=== PATIENT | male | born 1955 | race Caucasian/White ===

== ENCOUNTER 2017-01-16 11:56 | Observation (INO) ==
--- NOTE | 2017-01-16 12:13 | Emergency Department Note ---
Disposition Clinical Impression: Transient cerebral ischemia Qualifiers: Transient cerebral ischemia type: unspecified Qualified Code(s): G45.9 - Transient cerebral ischemic attack, unspecified Disposition: Admitted As Inpatient Condition: Good Referrals: Lupe Kim MD [Primary Care Provider] - Forms: ED Satisfaction Letter Time of Disposition: 13:40 Neuro HPI - General Chief Complaint: ED Neuro Symptoms/Deficit Stated Complaint: neuro symptoms Time Seen by Provider: 01/16/17 12:03 Source: patient, family Limitations: no limitations Nursing Notes Reviewed: Yes Vital Signs Reviewed: Yes - History of Present Illness HPI Narrative: 61-year-old male who was in his van working and developed acute onset of some visual changes he says it's difficult for them describe it's kind of like he was looking through thick glasses he did have some visual field that was decreased which lasted about 30 minutes and then resolved. He also had some numbness of his face which has improved. The patient has had a TIA about 5 years ago. Onset of Symptoms Date: 01/16/17 Onset of Symptoms Time: 11:00 Timing confirmed by: family member Location: left face, other (Vision) History of same: No Severity: now resolved Symptoms Improving: Yes Improves with: time Worsens with: none Context: sudden onset On Anticoagulants: No Associated symptoms: Reports: denies other symptoms Treatments Prior to Arrival: none - Related Data Home Medications: Home Medications Medication Instructions Recorded Confirmed Amoxicillin/Clavulanate [Augmentin] 875 mg PO BID MDD [id number], 05-18-1605/21/16 Desoximetasone [Topicort] 1 appl TP BID 05/21/16 05/21/16 Diltiazem HCl [Diltiazem 24Hr Cd] 120 mg PO DAILY 05/21/16 05/21/16 Omeprazole [PriLOSEC] 40 mg PO DAILY 05/21/16 05/21/16 Ondansetron HCl [Zofran] 4 mg PO Q8H PRN 05/21/16 05/21/16 Potassium Chloride 20 meq PO DAILY 05/21/16 05/21/16 Pravastatin Sodium [Pravachol] 40 mg PO DAILY 05/21/16 05/21/16 Sotalol HCl [Sotalol] 180 mg PO BID 11/16/16 11/16/16 Sulfamethoxazole/Trimeth DS 1 each PO BID MDD [id number], 05/21/16 05/21/16 [Bactrim DS] 05-16-16. Warfarin [Coumadin] 4 mg PO DAILY 05/21/16 05/21/16 Previous Rx's Medication Instructions Recorded Allopurinol [Zyloprim] 100 mg PO DAILY #30 tablet 05/24/16 Cefdinir [Omnicef] 300 mg PO BID #14 capsule 05/24/16 Furosemide [Lasix] 40 mg PO BID #60 05/24/16 Sulfamethoxazole/Trimeth DS 1 each PO BID #14 tablet 05/24/16 [Bactrim DS] Allergies/Adverse Reactions: Allergies Allergy/AdvReac Type Severity Reaction Status Date / Time No Known Allergies Allergy Verified 01/16/17 12:01 Constitutional: Denies: fever, chills, weakness, weight change Eyes: Reports: vision change. Denies: eye pain, eye discharge ENT ED: Denies: ear pain, throat pain, dental pain, hearing loss, epistaxis, congestion, dysphagia Cardiovascular: Denies: chest pain, palpitations, dyspnea on exertion, edema, syncope Respiratory: Denies: cough, dyspnea, wheezes, hemoptysis, stridor Gastrointestinal: Denies: abdominal pain, nausea, vomiting, diarrhea, constipation, hematemesis, melena, hematochezia Genitourinary: Denies: urgency, dysuria, frequency, hematuria Musculoskeletal: Denies: back pain, neck pain, arthralgia, myalgia Integumentary: Denies: rash, abrasion, lesions Neurological: Reports: paresthesias. Denies: headache, weakness, numbness, confusion, abnormal gait, vertigo Psychiatric: Denies: anxiety, depression, suicidal thoughts, homicidal thoughts , auditory hallucinations, visual hallucinations Endocrine: Denies: fatigue Hematological/Lymphatic: Denies: easy bleeding, easy bruising Allergic/Immunologic: Denies: facial swelling, urticaria Past Medical History - Past Medical History Medical history: Reports: atrial fibrillation, CHF, TIA Surgical history: Reports: appendectomy Psychiatric history: Reports: no psych history - Social History Smoking Status: Never smoker Smokeless Tobacco Status: No Alcohol use: Reports: none Drug use: Reports: none Physical Exam - General Limitations: no limitations General appearance: alert - Head Head exam: atraumatic, normocephalic, normal inspection - Eye Eye exam: Present: normal appearance, PERRL, EOMI - ENT ENT exam: normal exam, normal oropharynx, mucous membranes moist - Neck Neck exam: Present: normal inspection, full ROM, trachea midline - Chest Chest inspection: Present: normal inspection, symmetric chest wall rise - Respiratory Respiratory exam: Present: normal lung sounds bilaterally - Cardiovascular Cardiovascular exam: Present: regular rate, normal rhythm, normal heart sounds - Abdominal Exam Abdominal exam: Present: soft, Non-Tender. Absent: tenderness, distention, guarding, rebound, rigidity - Extremities Exam Extremities exam: Present: normal inspection, full ROM. Absent: tenderness, pedal edema - Expanded Lower Extremity Exam Neurovascular/Tendon exam: Absent: motor deficit, sensory deficit, tendon deficit Gait: observed and normal - Back Exam Back exam: Present: normal inspection, full ROM. Absent: tenderness - Neurological Exam Neurological exam: Present: alert, oriented X3. Absent: motor sensory deficit - Psychiatric Psychiatric exam: Present: normal affect, normal mood - Skin Skin exam: Present: warm, dry, intact, normal color Course - Reevaluation(s) Reevaluation #1: 61-year-old with a history of A. fib and had a TIA 5 years ago is on Coumadin who comes in with acute visual changes resolved her for about 30 minutes with some facial numbness and he said some weakness. The symptoms have resolved concern is that he's had a TIA. Time: 14:19 - Consultations Consultation #1: Discussed with , admit Time: 14:20 Vital Signs Temperature 97.4 F L 01/16/17 11:58 Pulse Rate 79 01/16/17 11:58 Respiratory Rate 19 01/16/17 11:58 Blood Pressure 142/84 01/16/17 11:58 O2 Sat by Pulse Oximetry 95 01/16/17 11:58 Temperature 97.4 F L 01/16/17 11:58 Pulse Rate 69 01/16/17 14:04 Respiratory Rate 16 01/16/17 14:04 Blood Pressure 118/70 01/16/17 14:04 O2 Sat by Pulse Oximetry 93 01/16/17 14:04 Oxygen Delivery Oxygen Delivery Room Air Neuro Symptoms/Deficit - Lab Data Lab results reviewed: Yes I reviewed the patient's lab results. Result diagrams: 01/16/17 12:28 01/16/17 12:28 Lab Results 01/16/17 01/16/17 01/16/17 Range/Units 12:28 12:28 12:28 WBC 8.8 (4.3-11.1) K/mcL RBC 6.26 H (4.19-5.50) M/mcL Hgb 16.6 (12.9-16.9) g/dL Hct 52.7 H (37.5-50.1) % MCV 84.2 (83.0-100.0) fL MCH 26.5 L (28.0-33.3) pg MCHC 31.5 L (31.6-35.5) g/dL RDW 14.4 (11.5-14.5) % Plt Count 215 (140-400) K/mcL MPV 10.0 (9.4-12.4) fL Immature Gran % 0.2 (0-4) % Seg Neutrophils % 66.6 % Lymphocytes % 23.4 % Monocytes % 7.9 % Eosinophils % 1.1 % Basophils % 0.8 % Neutrophils # 5.8 (1.6-8.9) K/mcL Lymphocytes # 2.1 (0.6-4.6) K/mcL Monocytes # 0.7 (0.0-1.3) K/mcL Eosinophils # 0.1 (0.0-0.6) K/mcL Basophils # 0.1 (0.0-0.2) K/mcL PT 22.2 H (9.4-12.1) Seconds INR 2.0 APTT 34.5 (26.0-36.0) Seconds Sodium 138 (136-145) mEq/L Potassium 4.1 (3.5-4.5) mEq/L Chloride 103 (98-109) mEq/L Carbon Dioxide 29 (19-29) mEq/L BUN 15 (8-26) mg/dL Creatinine 0.89 (0.72-1.25) mg/dL Est GFR ( Amer) > 60 (> 60) Est GFR (Non-Af Amer) > 60 (> 60) BUN/Creatinine Ratio 17 (6-26) Glucose 91 (70-99) mg/dL Calculated Osmolality 286 (280-300) Calcium 8.9 (8.6-10.8) mg/dL Troponin I (0-0.03) ng/mL 07/14/17 Range/Units 12:28 WBC (4.3-11.1) K/mcL RBC (4.19-5.50) M/mcL Hgb (12.9-16.9) g/dL Hct (37.5-50.1) % MCV (83.0-100.0) fL MCH (28.0-33.3) pg MCHC (31.6-35.5) g/dL RDW (11.5-14.5) % Plt Count (140-400) K/mcL MPV (9.4-12.4) fL Immature Gran % (0-4) % Seg Neutrophils % % Lymphocytes % % Monocytes % % Eosinophils % % Basophils % % Neutrophils # (1.6-8.9) K/mcL Lymphocytes # (0.6-4.6) K/mcL Monocytes # (0.0-1.3) K/mcL Eosinophils # (0.0-0.6) K/mcL Basophils # (0.0-0.2) K/mcL PT (9.4-12.1) Seconds INR APTT (26.0-36.0) Seconds Sodium (136-145) mEq/L Potassium (3.5-4.5) mEq/L Chloride (98-109) mEq/L Carbon Dioxide (19-29) mEq/L BUN (8-26) mg/dL Creatinine (0.72-1.25) mg/dL Est GFR ( Amer) (> 60) Est GFR (Non-Af Amer) (> 60) BUN/Creatinine Ratio (6-26) Glucose (70-99) mg/dL Calculated Osmolality (280-300) Calcium (8.6-10.8) mg/dL Troponin I 0.02 (0-0.03) ng/mL - Radiology Data Radiology results reviewed: Yes I reviewed the patient's radiology results. Head CT 01/16/17 12:09 IMPRESSION: 1. No acute intracranial abnormality. D/ / Ben Patel MD / Ben Patel MD Interpreting Provider: Ben Patel MD - EKG Data EKG attestation: Yes I reviewed and interpreted this EKG. EKG results narrative: Paced rhythm NIH Stroke Scale - Level of Consciousness LOC: Alert - LOC Questions LOC Questions: Answers both correctly - LOC Commands LOC Commands: Performs both correctly - Best Gaze Best Gaze: Normal - Visual Visual: No visual loss - Facial Palsy Facial Palsy: Normal - Motor Arms Motor Arm-Left: No drift for 10 seconds Motor Arm-Right: No drift for 10 seconds - Motor Legs Motor Leg-Left: No drift for 5 seconds Motor Leg-Right: No drift for 5 seconds - Limb Ataxia Limb Ataxia: Normal, No Ataxia - Sensory Sensory: Normal - Best Language Best Language: No aphasia - Dysarthria Dysarthria: Normal - Extinction and Inattention Extinction and Inattention: Normal - NIHSS Total Score NIHSS Total Score: 0 TPA Checklist - LKW: 3-4.5 hrs Add. Warnings/Precautions Patient/family understanding: The patient/family members have been counseled and understood the risk, benefit , and alternatives of treatment.
[2017-01-16 12:34] LABS: Basophils # 0.1 K/mcL (0.0-0.2); Basophils % 0.8 %; Eosinophils # 0.1 K/mcL (0.0-0.6); Eosinophils % 1.1 %; Hematocrit 52.7 % (37.5-50.1); Hemoglobin 16.6 g/dL (12.9-16.9); Immature Granulocytes % 0.2 % (0-4); Lymphocytes # 2.1 K/mcL (0.6-4.6); Lymphocytes % 23.4 %; Mean Corpuscular HGB Conc 31.5 g/dL (31.6-35.5); Mean Corpuscular Hemoglobin 26.5 pg (28.0-33.3); Mean Corpuscular Volume 84.2 fL (83.0-100.0); Monocytes # 0.7 K/mcL (0.0-1.3); Monocytes % 7.9 %; Neutrophils # 5.8 K/mcL (1.6-8.9); Platelet Count 215 K/mcL (140-400); Red Blood Count 6.26 M/mcL (4.19-5.50); Red Cell Distribution Width 14.4 % (11.5-14.5); Segmented Neutrophils % 66.6 %
[2017-01-16 12:47] LABS: BUN/Creatinine Ratio 17 (6-26); Blood Urea Nitrogen 15 mg/dL (8-26); Calcium 8.9 mg/dL (8.6-10.8); Carbon Dioxide 29 mEq/L (19-29); Chloride 103 mEq/L (98-109); Glucose 91 mg/dL (70-99); Osmolality,Calculated 286 (280-300); Potassium 4.1 mEq/L (3.5-4.5); Sodium 138 mEq/L (136-145); eGFR For African Americans > 60 (> 60); eGFR For Non-African Americans > 60 (> 60)
[2017-01-16 12:54] LABS: Prothrombin Time 22.2 Seconds (9.4-12.1)
[2017-01-16 12:57] LABS: Activated Partial Thrombo Time 34.5 Seconds (26.0-36.0)
[2017-01-16] MEDS ORDERED: Ondansetron ODT 4 MG TAB.RAPDIS SL PRN (18:12)
[2017-01-16] MEDS ORDERED: Acetaminophen 325 MG TABLET PO PRN (18:12)
--- NOTE | 2017-01-16 18:12 | Internal Med History&Physical ---
<Nilay Kim - Last Filed: 01/16/17 18:58> Date of Encounter: 01/16/17 Time of Encounter: 18:12 Assessment and Plan (1) Vision blurred Current visit: Yes Status: Acute - Symptoms have resolved without treatment - POssible causes include TIA vs migraine vs CVA vs seizure vs cardiac causes - Ischemic stroke unlikely given coumadin use with INR 2.0 - Will monitor on telemetry - EKG revealed paced AFib - Head CT in ED was negative for ischemia or hemorrhage. - Will obtain carotid US, repeat Echo, and repeat head CT in AM to evaluate for late presenting changes (2) Atrial fibrillation Current visit: Yes Status: Acute - EKG in ED showed paced AFib with a rate of 70 - on coumadin and complaint with checks, INR 2.0 - Continue home meds of diltiazem 120 mg Qualifiers: Atrial fibrillation type: chronic Qualified Code(s): I48.2 - Chronic atrial fibrillation (3) DVT prophylaxis Current visit: Yes Status: Acute - Continue home coumadin - INR therapeutic Internal Medicine - H&P: HPI Chief complaint: vision changes Admitted From: Emergency Dept Plans for Post Hospital Care: Home History of present illness: Mr. Arvizu is a 61 year old male who presents to [facility] from home with a complaint of vision changes. He has a PMHx of TIA, AFib on coumadin, sick sinus syndrome s/p AV pacer, HFpEF. He states that he was driving around 1100 today when he had sudden onset b/l blurry vision and describes it as if he was looking through thick glass. He states he has experienced something like this before about 8 years ago when he was diagnosed with a TIA. He states that he pulled over on the side of the road and the episode self resolved after about 45 minutes. He states he also experienced numbness in his bilateral maxillary region which resolved. He denies any symptoms of numbness, tingling, CP, SOB, n/v, weakness. He has not been ill recently. He has not noticed any prodromal symptoms but admits to a headache following resolution of his blurriness. He states that he sees his roll table operator regularly with the last visit a in October. He had a recent Echo in may 2016 which showed EF of 60% and no changes from previous. He states he is compliant with his coumadin checks. He denies any residual weakness, LOC, incontinence. Past Med Surg Social Fam HX - Past Medical History Medical history: atrial fibrillation, CHF, TIA Psychiatric history: no psych history - Past Surgical History Surgical History: appendectomy, orthopedic, other, pacemaker/AICD - Social History Smoking Status: Former smoker Smokeless Tobacco Status: No Alcohol use: rarely Drug use: none Occupational status: retired Activity Level: Independent ambulation - Family History Mother Hx Family Respiratory Disorders: Yes (pulmonary fibrosis) Father Cause of : CVA Hx Family Cardiac Disorders: Yes (CHF) Internal Medicine - H&P: Meds Desoximetasone [Topicort] 1 appl TP BID 05/21/16 [History] Diltiazem HCl [Diltiazem 24Hr Cd] 120 mg PO DAILY 05/21/16 [History] Potassium Chloride 20 meq PO DAILY 05/21/16 [History] Pravastatin Sodium [Pravachol] 40 mg PO HS 05/21/16 [History] Sotalol HCl [Sotalol] 180 mg PO BID 05/21/16 [History] Allopurinol [Zyloprim] 100 mg PO DAILY #30 tablet 05/24/16 [Rx] Furosemide [Lasix] 40 mg PO DAILY 01/16/17 [History] Warfarin perPT [Coumadin perPT] 4.5 mg PO DAILY 01/16/17 [History] Allergies No Known Allergies Allergy (Verified 01/16/17 12:01) All Systems PM: A 10-system review of systems was performed and is negative for pertinent findings except as documented above in the HPI. Review of systems: - Constitutional: Positive for fatigue. Denies fevers, chills, weight loss - Head/Neck: Positive for LINDSEY, neck stiffness - EENT: Positive for blurriness Denies tinnitus, auditory changes, rhinorrhea, congestion, sore throat, odynaphagia - CVS: Denies chest pain, palpitations, GRANGER, orthopnea, edema, PND, - Pulm: Denies SOB, cough, sputum, hematemesis, wheezing - GI: Denies abdominal pain, anorexia, nausea, vomiting, diarrhea, constipation , melena - : Denies dysuria, increased frequency, urgency, hematuria, - Heme: Denies ease of bleeding or bruising - MSK: Denies joint pain, limited ROM - Skin: Denies rashes, ulcers, color changes, - Neuro: Positive for LINDSEY, numbness of face. Denies paresthesias, focal deficits , ataxia, numbness, tingling. - Constitutional Vitals: Temp Pulse Resp BP Pulse Ox 97.7 F 70 16 117/70 94 01/16/17 16:37 01/16/17 16:37 01/16/17 16:37 01/16/17 16:37 01/16/17 16:37 Exam: Gen.: Vitals noted. No acute distress. AAOx3. Answering questions appropriately HEENT: PERRL, 3mm, EOMI, oropharynx clear, Normocephalic, atraumatic, mildly dry mucous membranes Neck: Supple. No adenopathy. Cardiac: RRR, no murmur, +S1/S2 Pulmonary: CTA bilaterally, no wheezes, rales or rhonchi, equal chest expansion Abdomen: soft, nontender, BS noted, no guarding. Mildly tympanic to percussion in upper quadrants Back: Nontender throughout. MSK: ROM intact, no joint swelling noted Extremities: no BLE edema, nontender calf, no cyanosis or clubbing Neuro: A&Ox3, moves all extremities, no focal deficits. Sensation intact grossly. CN II-XII intact bilaterally Psych: Appropriate mood and behavior Internal Med - H&P Results - Labs CBC & Chem 7: 01/16/17 12:28 01/16/17 12:28 <Francisco Woodson - Last Filed: 01/16/17 19:37> Date of Encounter: 01/16/17 Internal Medicine - H&P: HPI History of present illness: Mr. Arvizu is a 61 year old male All Systems PM: A 10-system review of systems was performed and is negative for pertinent findings except as documented above in the HPI. - Constitutional Vitals: Temp Pulse Resp BP Pulse Ox 98.4 F 75 16 124/72 94 01/16/17 19:08 01/16/17 19:08 01/16/17 19:08 01/16/17 19:08 01/16/17 19:08 Internal Med - H&P Results - Labs CBC & Chem 7: 01/16/17 12:28 01/16/17 12:28 - Attending Attestation 61 M Seen and independently examined at bedside Plan of care discussed with patient, his spouse at the bedside and the resident physicians He has a PMH of Afib on coumadin, CHFpEF with a dual chamber PCM,Morbid Obesity , Gout, presented with visual changes described as blurry vision, associated with headache, nausea and tingling of his ajciel-maxillary region of his face. All his symptoms resolved within 45 minutes of onset , he deneis facial paralysis, speech defects or motor deficits. Physical exam revealed a morbidly obese middle aged man, in no form of distress , Neuro exam: AAOX3, CN intact, eye exam with regular equally sized pupils and reactive, visual field was normal, and visual acuity was at least CF at 6m. Other exam unremarkable Labs and Imaging reviewed; EKG is paced, Head CT unremarkable, INR is therapeutic, CBC and Chem unremarkable A/P: Blurry vision, r/o TI, unlikely due to therapeutic INR and non-specificity of symptoms, repeat Head CT a.m, patient has a PCM and cannot get a Brain MRI. ECHO, Carotid doppler. Telemetry. Resume home meds, monitor INR Rest of details as in resident physicians's documentation
[2017-01-16] MEDS ORDERED: *HR* Warfarin 3 MG TABLET PO ONE (20:04)
[2017-01-16] MEDS ORDERED: Melatonin 3 MG TABLET PO ONE (21:30)
[2017-01-16] MEDS: FluocinoNIDE 0.05% CRM 15 GM TUBE TP SCH (22:03)
[2017-01-17 04:42] LABS: Hematocrit 52.4 % (37.5-50.1); Hemoglobin 15.6 g/dL (12.9-16.9); Mean Corpuscular HGB Conc 29.8 g/dL (31.6-35.5); Mean Corpuscular Hemoglobin 25.4 pg (28.0-33.3); Mean Corpuscular Volume 85.3 fL (83.0-100.0); Mean Platelet Volume 10.3 fL (9.4-12.4); Platelet Count 204 K/mcL (140-400); Red Blood Count 6.14 M/mcL (4.19-5.50)
[2017-01-17 04:43] LABS: INR 1.8; Prothrombin Time 20.1 Seconds (9.4-12.1)
[2017-01-17 04:46] LABS: Activated Partial Thrombo Time 34.1 Seconds (26.0-36.0)
[2017-01-17 05:00] LABS: BUN/Creatinine Ratio 19 (6-26); Blood Urea Nitrogen 17 mg/dL (8-26); Calcium 8.8 mg/dL (8.6-10.8); Carbon Dioxide 30 mEq/L (19-29); Chloride 103 mEq/L (98-109); Chol/HDL Ratio 4.4 (0-4.9); Cholesterol 153 mg/dL (< 200); Glucose 101 mg/dL (70-99); HDL Cholesterol 35 mg/dL (40-59); LDL Cholesterol,Calculated 93 mg/dL (0-99); Osmolality,Calculated 290 (280-300); Potassium 4.2 mEq/L (3.5-4.5); Sodium 139 mEq/L (136-145); Triglycerides 125 mg/dL (< 150); eGFR For African Americans > 60 (> 60); eGFR For Non-African Americans > 60 (> 60)
[2017-01-17] MEDS: Diltiazem CD (24hr) 120 MG CAPSULE PO SCH (08:47)
[2017-01-17] MEDS: Furosemide 40 MG TABLET PO SCH ×3 (08:48→16:00)
[2017-01-17] MEDS: FluocinoNIDE 0.05% CRM 15 GM TUBE TP SCH ×2 (08:52→21:29)
[2017-01-17] MEDS ORDERED: Warfarin perPT PO SCH (09:00)
--- NOTE | 2017-01-17 12:56 | Discharge Summary ---
<Nilay Kim - Last Filed: 01/17/17 12:54> Date of Encounter: 01/17/17 Time of Encounter: 12:54 - Discharge Diagnosis (1) Vision blurred Priority: Primary Status: Acute (2) Atrial fibrillation Priority: Primary Status: Chronic Qualifiers: Atrial fibrillation type: permanent Qualified Code(s): I48.2 - Chronic atrial fibrillation (3) DVT prophylaxis Priority: Primary Status: Acute - Discharge Medications Home Medications: Desoximetasone [Topicort] 1 appl TP BID 05/21/16 [History] Diltiazem HCl [Diltiazem 24Hr Cd] 120 mg PO DAILY 05/21/16 [History] Potassium Chloride 20 meq PO DAILY 05/21/16 [History] Pravastatin Sodium [Pravachol] 40 mg PO HS 05/21/16 [History] Sotalol HCl [Sotalol] 180 mg PO BID 05/21/16 [History] Allopurinol [Zyloprim] 100 mg PO DAILY #30 tablet 05/24/16 [Rx] Furosemide [Lasix] 40 mg PO DAILY 01/16/17 [History] Warfarin perPT [Coumadin perPT] 4.5 mg PO DAILY 01/16/17 [History] Allergies/Adverse Reactions: Allergies No Known Allergies Allergy (Verified 01/16/17 12:01) Procedures/tests Complete & Pending: Procedures Performed prior 72 hours Category Date Time Status CT head/brain wo con [CT] Routine Cat Scan 01/17/17 08:00 Completed EV carotid duplex imaging BI Routine Y 01/17/17 08:00 Ordered EV echocardiogram Routine Y 01/17/17 08:00 Ordered Date of admission: 01/16/17 15:40 Primary care physician: Lupe Kim Discharging clinician: Nilay Kim Anticipated date of discharge: 01/17/17 - Patient Status Disposition: Home, Self-Care Condition: Good Overall status at discharge: patient is back to baseline - Discharge Instructions Instructions: Heart Failure (DC), Atrial Flutter (DC), Atrial Fibrillation (DC) , Cellulitis (DC) Follow Up With: Lupe Kim MD [Primary Care Provider] - (Appointment web requested. Office to contact patient at home to schedule appointment. ) - Diet and Activity Activity: increase activity as tolerated, resume usual activities as tolerated Diet: advance to your usual diet, low salt diet Hospital course: Mr. Arvizu is a 61 year old male with a past medical history of TIA, A. fib on Coumadin, sick sinus syndrome status post AV pacer, HFpEF who presents to [facility] with complaint of vision changes. He stated he was driving he began to's experience sudden onset blurriness and bilateral eyes. He states he had had a similar episode in the past which was diagnosed as a TIA episode self resolved after about 45 minutes, and he admits to a headache following the episode as well as facial numbness bilaterally which is also resolved. He denies any residual symptoms. Most recent cardiac workup was in 2016 which showed an ejection fraction of 60% with moderate diastolic dysfunction which has been stable from previous echocardiogram. He states he is compliant on his Coumadin checks, and sees a silverware etcher regularly. In the emergency department, vital signs were all within normal limits, lab results were unremarkable except for a mildly elevated hematocrit of 52.7. EKG showed paced atrial fibrillation, head CT was unremarkable INR was 2.0. Patient was admitted to medicine service for observation and workup for vision changes. Patient remained asymptomatic throughout hospital stay, he received a repeat head CT the next morning which remained negative for signs of cerebrovascular accident/ TIA. He also received a repeat echocardiogram, as well as carotid artery ultrasound. He remained medically stable on day of discharge. Instructed to follow-up with his primary care physician for any future episodes or worsening. - Time Spent with Patient Total time spent providing and/or coordinating discharge services: Greater than 30 minutes - Constitutional Vitals: Temp Pulse Resp BP Pulse Ox 97.9 F 71 16 108/62 91 01/17/17 12:08 01/17/17 12:08 01/17/17 12:08 01/17/17 12:08 01/17/17 12:08 Exam: Gen.: Vitals noted. No acute distress. AAOx3 HEENT: PERRL/EOMI, oropharynx clear, Normocephalic, atraumatic. Mildly dry mucous membranes Neck: Supple. No adenopathy. Cardiac: Paced atrial fibrillation, no murmur, +S1/S2 Pulmonary: CTA bilaterally, no wheezes, rales or rhonchi, equal chest expansion Abdomen: soft, nontender, BS noted, no guarding. Mildly tympanic to percussion in upper quadrants Back: Nontender throughout. MSK: ROM intact, no joint swelling noted Extremities: no BLE edema, nontender calf, no cyanosis or clubbing Neuro: A&Ox3, moves all extremities, no focal deficits. Cranial nerves II through XII intact, no areas of numbness. Psych: Appropriate mood and behavior <AtilioMarcial agostoFrancisco T - Last Filed: 01/18/17 12:30> Date of Encounter: 01/18/17 - Discharge Diagnosis (1) Atrial flutter Priority: Secondary Status: Chronic Qualifiers: Atrial flutter type: unspecified Qualified Code(s): I48.92 - Unspecified atrial flutter (2) Transient cerebral ischemia Priority: Primary Status: Suspected Qualifiers: Transient cerebral ischemia type: amaurosis fugax Qualified Code(s): G45.3 - Amaurosis fugax (3) Vision blurred Priority: Primary Status: Acute (4) Congestive heart failure Priority: Secondary Status: Chronic Qualifiers: Congestive heart failure type: diastolic Congestive heart failure chronicity: acute on chronic Qualified Code(s): I50.33 - Acute on chronic diastolic (congestive) heart failure (5) DVT prophylaxis Priority: Primary Status: Acute Procedures/tests Complete & Pending: Procedures Performed prior 72 hours Category Date Time Status CT head/brain wo con [CT] Routine Cat Scan 01/17/17 08:00 Completed EV carotid duplex imaging BI Routine Y 01/18/17 08:00 Completed EV echocardiogram w enhance Routine Y 01/18/17 08:00 Completed Date of admission: 01/16/17 15:40 Primary care physician: Lupe Kim Anticipated date of discharge: 01/18/17 Hospital course: Mr. Arvizu is a 61 year old male - Time Spent with Patient Total time spent providing and/or coordinating discharge services: - Constitutional Vitals: Temp Pulse Resp BP Pulse Ox 97.8 F 70 18 113/74 92 01/18/17 11:25 01/18/17 11:25 01/18/17 11:25 01/18/17 11:25 01/18/17 11:25 - Attending Attestation Discharge was done today 01/18/17 See event note of same day for details Rest as in resident physician's documentation.....
--- NOTE | 2017-01-17 15:54 | Internal Med Progress Note ---
Date of Encounter: 01/17/17 Time of Encounter: 15:52 - Assessment and plan (1) Atrial flutter Current Visit: Yes Status: Chronic Assessment and plan: Hr controlled iNR subtherapeutic today Continue home dose of warfarin Continue Sotalol, diltiazem Qualifiers: Atrial flutter type: unspecified Qualified Code(s): I48.92 - Unspecified atrial flutter (2) Transient cerebral ischemia Current Visit: Yes Status: Suspected Assessment and plan: Suspected, visual symptoms Negative head CT X2 Unable to obtain MRI due to PCM Follow ECHO, carotid doppler d/c NIHSS Qualifiers: Transient cerebral ischemia type: amaurosis fugax Qualified Code(s): G45.3 - Amaurosis fugax (3) Vision blurred Current Visit: Yes Status: Acute Assessment and plan: Resolved As above (4) Congestive heart failure Current Visit: Yes Status: Chronic Assessment and plan: Clinically euvolemic Continue home meds Qualifiers: Congestive heart failure type: diastolic Congestive heart failure chronicity: acute on chronic Qualified Code(s): I50.33 - Acute on chronic diastolic (congestive) heart failure (5) DVT prophylaxis Current Visit: Yes Status: Acute Assessment and plan: ON warfarin, continue same - Subjective Interval history: Seen and reviewed at the bedside with spouse No complains He has had no neurologic symptoms since presentation We are still awaiting his Carotid doppler USS and ECHO His repeat head CT is negative - Constitutional Vitals: Temp Pulse Resp BP Pulse Ox 98.0 F 71 14 106/65 91 01/17/17 15:27 01/17/17 15:27 01/17/17 15:27 01/17/17 15:27 01/17/17 15:27 General appearance: Present: A&O X 3, morbidly obese, pleasant, no acute distress - Head Head exam: Present: atraumatic, normocephalic - Eye Eye exam: Present: PERRL, conjuntiva pink, sclera anicteric Pupils: Present: PERRL - Neck Neck exam general surgery: Present: supple, trachea midline. Absent: lymphadenopathy - Respiratory Respiratory exam: Present: CTAB. Absent: accessory muscle use, rales, rhonchi, wheezes - Cardiovascular Cardiovascular exam: Present: RRR, +S1, +S2. Absent: diastolic murmur, gallop, rubs, systolic murmur - GI/Abdominal GI/Abdominal exam: Present: normal bowel sounds, soft, no peritoneal signs. Absent: distended, tenderness - Extremities Exam Extremities exam: Present: warm, radial pulses palpable and symetrical. Absent : calf tenderness, cyanotic, pedal edema - Neurological Exam Neurological exam: Present: alert, CN II-XII intact, oriented X3, no focal deficits. Absent: pronater drift, facial droop, speech deficit - Skin Skin exam: Present: dry, intact Internal Medicine: Result - Labs CBC & Chem 7: 01/17/17 03:40 01/17/17 03:40 Labs: Short CBC 01/17/17 Range/Units 03:40 WBC 7.9 (4.3-11.1) K/mcL Hgb 15.6 (12.9-16.9) g/dL Hct 52.4 H (37.5-50.1) % Plt Count 204 (140-400) K/mcL BMP 01/17/17 03:40 Sodium 139 Potassium 4.2 Chloride 103 Carbon Dioxide 30 H BUN 17 Creatinine 0.88 Glucose 101 H Calcium 8.8 - ABG Interpretation ABG results: PT/INR, D-dimer PT 20.1 Seconds (9.4-12.1) H 01/17/17 03:40 - Impressions Impressions Head CT 01/17/17 08:00 IMPRESSION: No acute intracranial abnormality. D/ / Amanda Serra MD / Amanda Serra MD Interpreting Provider: Amanda Serra MD Consult Discharge Plan - Plan Referrals: Lupe Kim MD [Primary Care Provider] -
[2017-01-17] MEDS ORDERED: *HR* Warfarin 3 MG TABLET PO SCH (18:00)
[2017-01-18 04:38] LABS: Prothrombin Time 21.7 Seconds (9.4-12.1)
[2017-01-18] MEDS ORDERED: Perflutren Lipid Microsphere 1.3 ML in 0.9 % Sodium Chloride 8.7 ML IVP ONE (09:40)
[2017-01-18 11:25] VITALS: BP 113/74
[2017-01-18] MEDS: FluocinoNIDE 0.05% CRM 15 GM TUBE TP SCH (11:25)
[2017-01-18] MEDS: Diltiazem CD (24hr) 120 MG CAPSULE PO SCH (11:26)
[2017-01-18] MEDS: Furosemide 40 MG TABLET PO SCH (11:26)
--- NOTE | 2017-01-18 11:52 | Event Note ---
<Nilay Kim - Last Filed: 01/18/17 11:50> Date of Encounter: 01/18/17 Time of Encounter: 11:50 Mr. Arvizu is a 61-year-old male who presented with vision changes. Vision has been asymptomatic since his initial episode upon admission. Workup revealed no significant findings and echocardiogram, carotid ultrasound, head CT. He was scheduled for discharge yesterday 01/17/17, however he was not able to be scheduled for echocardiogram or carotid ultrasound. Tests completed this morning, and patient is stable for discharge at this time. He will be instructed to follow-up with primary care physician upon discharge, and present to emergency department if symptoms return or worsen. <Francisco Woosdon - Last Filed: 01/18/17 12:29> Date of Encounter: 01/18/17 Patient seen and evaluated at bedside He was initially planned for discharge 01/17 pending his TIA work up completion Work up was done this morning and is negative, his ECHO was suboptimal due to bod habitus but was grossly unremarkable. he is stable to be discharged home, to follow up with PCP. Discharge details as in discharge summary of 01/17/17
--- NOTE | 2017-01-19 06:18 | Electrocardiograph Report ---
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
--- NOTE | 2017-01-19 06:28 | Carotid Imaging Report ---
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 Findings Carotid Duplex: Echevarria scale imaging combined with Doppler flow analysis suggests normal findings bilaterally. Prior Study: No prior study available for comparison. Carotid Results Right PSV EDV Assessment Proximal CCA 70 17 Normal Mid CCA 70 16 Normal Distal CCA 64 16 Normal Bifurcation 60 18 Normal Proximal ICA 67 18 Normal Mid ICA 50 17 Normal Distal ICA 43 14 Normal ECA 109 14 Normal Vertebral Artery 31 11 Antegrade Flow Left PSV EDV Assessment Proximal CCA 81 16 Normal Mid CCA 65 18 Normal Distal CCA 70 18 Normal Bifurcation 47 11 Normal Proximal ICA 45 10 Normal Mid ICA 54 20 Normal Distal ICA 60 25 Normal ECA 51 11 Normal Vertebral Artery 26 7 Antegrade Flow Ratio's Right ICA/CCA Ratio: 0.95 ICA/CCA Values: 67/70 Left ICA/CCA Ratio: 0.92 ICA/CCA Values: 60/65 Updated by David Matthew MD on 01/19/2017 6:21:52 AM electronically signed on 01/19/2017 6:22:03 AM with status of Final
== END 2017-01-18 12:06 | disposition home or self-care (01) ==
LOC: SUATTDRO → EMEROO 11:56 → 3BNU 11:56 → SUATTDRO 15:40 → 3BNU 16:21
PROVIDERS: ADMIT Internal Medicine; ATTEND Internal Medicine

== ENCOUNTER 2017-12-21 13:04 | Inpatient (IN) ==
--- NOTE | 2017-12-21 13:52 | Emergency Department Note ---
Disposition Clinical Impression: Cellulitis Disposition: Admitted As Inpatient Condition: Good General Adult HPI - General Chief complaint: ED Extremity Problem,Nontraumatic Stated complaint: LLE swelling/redness Time Seen by Provider: 12/21/17 13:12 Source: patient Limitations: no limitations Nursing Notes Reviewed: Yes Vital Signs Reviewed: Yes - History of Present Illness Pain Scale: 7 - Related Data Home Medications Medication Instructions Recorded Confirmed Diltiazem HCl [Diltiazem 24Hr Cd] 120 mg PO DAILY 05/21/16 12/21/17 Pravastatin Sodium [Pravachol] 40 mg PO HS 05/21/16 12/21/17 Furosemide [Lasix] 40 mg PO DAILY 01/16/17 12/21/17 Allopurinol [Zyloprim 100 MG] 100 mg PO DAILY 12/21/17 12/21/17 Rivaroxaban [Xarelto] 20 mg PO DAILY 12/21/17 12/21/17 Sotalol HCl [Betapace] 120 mg PO BID 12/21/17 12/21/17 Allergies Allergy/AdvReac Type Severity Reaction Status Date / Time No Known Allergies Allergy Verified 12/21/17 14:02 Past Medical History - Past Medical History Medical history: Reports: atrial fibrillation, CHF, TIA Surgical history: Reports: appendectomy, orthopedic, other, pacemaker/AICD Psychiatric history: Reports: no psych history - Social History Smoking Status: Former smoker Smokeless Tobacco Status: No Alcohol use: Reports: rarely Drug use: Reports: none Physical Exam - General Limitations: no limitations General appearance: alert, in no apparent distress Course Vital Signs Temperature 98.0 F 12/21/17 13:04 Pulse Rate 69 12/21/17 13:04 Respiratory Rate 18 12/21/17 13:04 Blood Pressure 100/66 12/21/17 13:04 O2 Sat by Pulse Oximetry 94 12/21/17 13:04 Temperature 98.0 F 12/21/17 13:04 Pulse Rate 70 12/21/17 14:21 Respiratory Rate 18 12/21/17 16:34 Blood Pressure 95/61 12/21/17 16:34 O2 Sat by Pulse Oximetry 97 12/21/17 14:21 Oxygen Delivery Oxygen Delivery Room Air Medical Decision Making - MDM Narrative Medical decision making narrative: 1630 hrs.: Labs are back elevated white count with leukocytosis. Admission for IV antibiotics. Patient submitted this time and patient is lower extremity cellulitis. - Lab Data Result diagrams: 12/21/17 13:40 12/21/17 13:40 Lab Results 12/21/17 12/21/17 Range/Units 13:40 13:40 WBC 12.9 H (4.3-11.1) K/mcL RBC 6.31 H (4.19-5.50) M/mcL Hgb 16.3 (12.9-16.9) g/dL Hct 53.2 H (37.5-50.1) % MCV 84.3 (83.0-100.0) fL MCH 25.8 L (28.0-33.3) pg MCHC 30.6 L (31.6-35.5) g/dL RDW 15.5 H (11.5-14.5) % Plt Count 199 (140-400) K/mcL MPV 10.7 (9.4-12.4) fL Immature Gran % 0.5 (0-4) % Seg Neutrophils % 83.8 % Lymphocytes % 9.1 % Monocytes % 6.0 % Eosinophils % 0.3 % Basophils % 0.3 % Neutrophils # 10.8 H (1.6-8.9) K/mcL Lymphocytes # 1.2 (0.6-4.6) K/mcL Monocytes # 0.8 (0.0-1.3) K/mcL Eosinophils # 0.0 (0.0-0.6) K/mcL Basophils # 0.0 (0.0-0.2) K/mcL Sodium 136 (136-145) mEq/L Potassium 4.0 (3.5-5.1) mEq/L Chloride 101 (98-107) mEq/L Carbon Dioxide 24 (23-29) mEq/L BUN 15 (8-23) mg/dL Creatinine 0.81 (0.70-1.30) mg/dL Est GFR ( Amer) > 60 (> 60) Est GFR (Non-Af Amer) > 60 (> 60) BUN/Creatinine Ratio 19 (6-26) Glucose 112 H (70-105) mg/dL Calculated Osmolality 284 (280-300) Calcium 9.0 (8.6-10.3) mg/dL Attestation Statement - Attestation Attestation: This documentation is done with the assistance of Leigh cruzation. Despite efforts made to ensure accuracy, there may be inaccuracies in polymer tester or spelling and typographical errors. I examined this patient and my medical decision-making was reviewed with the Resident Physician. I agree with the documented findings, disposition and treatment plan as described except to the extent set forth below. Patient presents with a scratch to his lower extremity with edema and cellulitis. He says he does have edema in the leg usually. He says that his was not bite it was a scratch. He has been on outpatient medications with clindamycin but he is failing outpatient therapy. We will start him over an IV antibiotics here labs and admit. He is in agreement with plan. No signs of DVT.
--- NOTE | 2017-12-21 13:55 | Emergency Department Note ---
Disposition Clinical Impression: Cellulitis Qualifiers: Site of cellulitis: extremity Site of cellulitis of extremity: lower extremity Laterality: left Qualified Code(s): L03.116 - Cellulitis of left lower limb Disposition: Admitted As Inpatient Condition: Good Referrals: Lupe Kim MD [Primary Care Provider] - Forms: ED Satisfaction Letter Time of Disposition: 14:32 General Adult HPI - General Chief complaint: ED Extremity Problem,Nontraumatic Stated complaint: RLE swelling/redness Time Seen by Provider: 12/21/17 13:12 Source: patient Limitations: no limitations Nursing Notes Reviewed: Yes Vital Signs Reviewed: Yes - History of Present Illness HPI Narrative: Swelling erythema and clear drainage to the left lower extremity after being scratched by his dog one week ago. Has been on clindamycin for 3 days and the swelling erythema and drainage is getting worse. Does have nighttime sweating and chills. Pain Scale: 7 - Related Data Home Medications Medication Instructions Recorded Confirmed Diltiazem HCl [Diltiazem 24Hr Cd] 120 mg PO DAILY 05/21/16 01/16/17 Pravastatin Sodium [Pravachol] 40 mg PO HS 05/21/16 01/16/17 Furosemide [Lasix] 40 mg PO DAILY 01/16/17 01/16/17 Allopurinol [Zyloprim 100 MG] 100 mg PO DAILY 12/21/17 12/21/17 Rivaroxaban [Xarelto] 20 mg PO DAILY 12/21/17 12/21/17 Sotalol HCl [Betapace] 120 mg PO BID 12/21/17 12/21/17 Allergies Allergy/AdvReac Type Severity Reaction Status Date / Time No Known Allergies Allergy Verified 12/21/17 14:02 All systems ED: reviewed and negative except as stated. Constitutional: Reports: fever (subjective), chills ENT ED: Denies: congestion Cardiovascular: Denies: chest pain, palpitations, syncope Respiratory: Denies: cough, dyspnea Gastrointestinal: Reports: nausea. Denies: abdominal pain, vomiting, diarrhea, hematemesis Genitourinary: Denies: urgency, dysuria, frequency Musculoskeletal: Reports: other (LLE pain, erythema, swelling, drainage). Denies: back pain, neck pain Neurological: Denies: weakness Past Medical History - Past Medical History Attestation: Yes The following information was validated with the patient. Source: patient Medical history: Reports: atrial fibrillation, CHF, TIA Surgical history: Reports: appendectomy, orthopedic, other, pacemaker/AICD Psychiatric history: Reports: no psych history - Social History Smoking Status: Former smoker Smokeless Tobacco Status: No Alcohol use: Reports: rarely Drug use: Reports: none Physical Exam - General Limitations: no limitations General appearance: alert, in no apparent distress - Head Head exam: atraumatic, normocephalic, normal inspection - Eye Eye exam: Present: normal appearance, PERRL, EOMI - ENT ENT exam: normal exam, normal oropharynx, mucous membranes moist - Neck Neck exam: Present: normal inspection, full ROM, trachea midline - Chest Chest inspection: Present: normal inspection, symmetric chest wall rise - Respiratory Respiratory exam: Present: normal lung sounds bilaterally. Absent: respiratory distress, accessory muscle use - Cardiovascular Cardiovascular exam: Present: regular rate, normal rhythm, normal heart sounds - Expanded Upper Extremity Exam Shoulder exam: Present: normal inspection, full ROM Arm exam: Present: normal inspection, full ROM Elbow exam: Present: normal inspection, full ROM Forearm/Wrist exam: Present: normal inspection, full ROM Hand exam: Present: normal inspection, full ROM Vascular exam: Normal: capillary refill, radial pulse - Expanded Lower Extremity Exam Hip/Pelvis exam: Present: normal inspection, full ROM Upper leg exam: Present: normal inspection, full ROM Knee exam: Present: normal inspection, full ROM Lower leg exam: Present: full ROM, other (erythema, swelling, clear drainage to left lower extremity) Ankle exam: Present: normal inspection, full ROM - Neurological Exam Neurological exam: Present: alert, oriented X3 - Psychiatric Psychiatric exam: Present: normal affect, normal mood - Skin Skin exam: Present: warm, dry, normal color Course Course Narrative: Male patient presenting to emergency department after being scratched by his dog on his left lower leg one week ago. Patient states that since then he has been getting increasing swelling and erythema and warmth to this extremity. There is now discharge. It is clear in color. He has been on clindamycin since Thursday 3 days ago. He reports chills and tactile fevers overnight for tonight. He reports that the erythema and swelling is getting worse. He does generally have unilateral leg swelling to his however it is more significant now. He denies any chest pain or shortness of breath. We will get a basic lab panel and start patient on IV vancomycin. We will admit patient to the hospital for failed outpatient therapy. - Consultations Consultation #1: Dr Alfonso Time: 15:34 Vital Signs Temperature 98.0 F 12/21/17 13:04 Pulse Rate 69 12/21/17 13:04 Respiratory Rate 18 12/21/17 13:04 Blood Pressure 100/66 12/21/17 13:04 O2 Sat by Pulse Oximetry 94 12/21/17 13:04 Temperature 98.0 F 12/21/17 13:04 Pulse Rate 70 12/21/17 14:21 Respiratory Rate 22 12/21/17 14:21 Blood Pressure 101/64 12/21/17 14:21 O2 Sat by Pulse Oximetry 97 12/21/17 14:21 Oxygen Delivery Oxygen Delivery Room Air Medical Decision Making - Medical Records Medical records reviewed: Yes I reviewed the patient's medical records. - Lab Data Lab results reviewed: Yes I reviewed the patient's lab results. Result diagrams: 12/21/17 13:40 12/21/17 13:40 Lab Results 12/21/17 12/21/17 Range/Units 13:40 13:40 WBC 12.9 H (4.3-11.1) K/mcL RBC 6.31 H (4.19-5.50) M/mcL Hgb 16.3 (12.9-16.9) g/dL Hct 53.2 H (37.5-50.1) % MCV 84.3 (83.0-100.0) fL MCH 25.8 L (28.0-33.3) pg MCHC 30.6 L (31.6-35.5) g/dL RDW 15.5 H (11.5-14.5) % Plt Count 199 (140-400) K/mcL MPV 10.7 (9.4-12.4) fL Immature Gran % 0.5 (0-4) % Seg Neutrophils % 83.8 % Lymphocytes % 9.1 % Monocytes % 6.0 % Eosinophils % 0.3 % Basophils % 0.3 % Neutrophils # 10.8 H (1.6-8.9) K/mcL Lymphocytes # 1.2 (0.6-4.6) K/mcL Monocytes # 0.8 (0.0-1.3) K/mcL Eosinophils # 0.0 (0.0-0.6) K/mcL Basophils # 0.0 (0.0-0.2) K/mcL Sodium 136 (136-145) mEq/L Potassium 4.0 (3.5-5.1) mEq/L Chloride 101 (98-107) mEq/L Carbon Dioxide 24 (23-29) mEq/L BUN 15 (8-23) mg/dL Creatinine 0.81 (0.70-1.30) mg/dL Est GFR ( Amer) > 60 (> 60) Est GFR (Non-Af Amer) > 60 (> 60) BUN/Creatinine Ratio 19 (6-26) Glucose 112 H (70-105) mg/dL Calculated Osmolality 284 (280-300) Calcium 9.0 (8.6-10.3) mg/dL
[2017-12-21 14:03] LABS: Basophils % 0.3 %; Eosinophils % 0.3 %; Hematocrit 53.2 % (37.5-50.1); Hemoglobin 16.3 g/dL (12.9-16.9); Immature Granulocytes % 0.5 % (0-4); Lymphocytes # 1.2 K/mcL (0.6-4.6); Lymphocytes % 9.1 %; Mean Corpuscular HGB Conc 30.6 g/dL (31.6-35.5); Mean Corpuscular Hemoglobin 25.8 pg (28.0-33.3); Mean Corpuscular Volume 84.3 fL (83.0-100.0); Mean Platelet Volume 10.7 fL (9.4-12.4); Monocytes # 0.8 K/mcL (0.0-1.3); Neutrophils # 10.8 K/mcL (1.6-8.9); Platelet Count 199 K/mcL (140-400); Red Blood Count 6.31 M/mcL (4.19-5.50); Red Cell Distribution Width 15.5 % (11.5-14.5); Segmented Neutrophils % 83.8 %
[2017-12-21] MEDS ORDERED: *HR* OxyCODONE/APAP 7.5/325 TABLET PO ONE (14:26)
[2017-12-21] MEDS ORDERED: Tdap (Boostrix) Vaccine 0.5 ML SYRINGE IM ONE (14:30)
[2017-12-21 14:44] LABS: BUN/Creatinine Ratio 19 (6-26); Blood Urea Nitrogen 15 mg/dL (8-23); Carbon Dioxide 24 mEq/L (23-29); Chloride 101 mEq/L (98-107); Glucose 112 mg/dL (70-105); Osmolality,Calculated 284 (280-300); Sodium 136 mEq/L (136-145); eGFR For African Americans > 60 (> 60); eGFR For Non-African Americans > 60 (> 60)
[2017-12-21] MEDS ORDERED: *HR* Rivaroxaban 10 MG TABLET PO SCH (16:45)
[2017-12-21] MEDS ORDERED: 0.9 % Sodium Chloride 1,000 ML IVC SCH (16:45)
[2017-12-21] MEDS ORDERED: Naloxone 0.4 MG/ML INJ IVP PRN (16:58)
[2017-12-21] MEDS ORDERED: Acetaminophen 325 MG TABLET PO PRN (16:58)
[2017-12-21] MEDS: Furosemide 40 MG TABLET PO SCH (18:12)
[2017-12-21] MEDS: Diltiazem CD (24hr) 120 MG CAPSULE PO SCH (18:12)
--- NOTE | 2017-12-21 18:40 | Internal Med History&Physical ---
Date of Encounter: 12/21/17 Time of Encounter: 16:17 Internal Medicine - H&P: HPI Chief complaint: "Left leg infection" Admitted From: Emergency Dept Plans for Post Hospital Care: Home History of present illness: Mr. Arvizu is a 62 year old male who presented to ED today with worsening erythema and edema of LLE. He states that his dog scratched his leg 3 days ago. He took some old clindamycin that he had laying around at home with no improvement of symptoms. Erythema and edema continued to worsen, so he came to ED today. There is some serosanguinous drainage from LLE bain. There two very small scabbed areas on LLE bain. No purulent drainage. Mild TTP of left leg. He denies fever, chills, chest pain, SOB, nausea, vomiting, abdominal pain, changes in bladder, or changes in bowels. He has history of CHF with L > R BLE edema slightly worse than baseline. In the ED, WBC was elevated to 12.9. Remainder of labwork was unremarkable. He received percocet 7.5 mg, IV vancomycin, and Tdap vaccine. He states that pain is controlled at this time. He has no other complaints at this time. Past Med Surg Social Fam HX - Past Medical History Attestation: Yes The following information was validated with the patient. Source: patient Medical history: atrial fibrillation, CHF, TIA Psychiatric history: no psych history - Past Surgical History Surgical History: appendectomy, orthopedic, other, pacemaker/AICD Additional surgical history: nerve surgery, pacemaker placement, tonsils - Social History Smoking Status: Former smoker Smokeless Tobacco Status: No Alcohol use: rarely Drug use: none - Family History Mother Hx Family Respiratory Disorders: Yes (pulmonary fibrosis) Father History Unknown: Yes Hx Family Cardiac Disorders: Yes - Additional Family History Additional family history: Family history reviewed with patient. Internal Medicine - H&P: Meds Diltiazem HCl [Diltiazem 24Hr Cd] 120 mg PO DAILY 05/21/16 [History] Pravastatin Sodium [Pravachol] 40 mg PO HS 05/21/16 [History] Furosemide [Lasix] 40 mg PO DAILY 01/16/17 [History] Allopurinol [Zyloprim 100 MG] 100 mg PO DAILY 12/21/17 [History] Rivaroxaban [Xarelto] 20 mg PO DAILY 12/21/17 [History] Sotalol HCl [Betapace] 120 mg PO BID 12/21/17 [History] 3 Allergy/AdvReac Type Severity Reaction Status Date / Time No Known Allergies Allergy Verified 12/21/17 14:02 All Systems PM: A 10-system review of systems was performed and is negative for pertinent findings except as documented above in the HPI. - Constitutional Vitals: Temp Pulse Resp BP Pulse Ox 98.0 F 70 18 95/61 97 12/21/17 13:04 12/21/17 14:21 12/21/17 16:34 12/21/17 16:34 12/21/17 14:21 General appearance: Present: cooperative, A&O X 3, morbidly obese, pleasant, no acute distress, answers questions appropriately - Head Head exam: Present: atraumatic, normal inspection, normocephalic - Eye Eye exam: Present: EOMI, PERRL. Absent: conjunctival injection, nystagmus, scleral icterus - ENT ENT exam: Present: mucous membranes moist, normal external ear exam, normal oropharynx - Neck Neck exam general surgery: Present: supple, trachea midline. Absent: lymphadenopathy, tenderness, thyromegaly - Respiratory Respiratory exam: Present: CTAB. Absent: accessory muscle use, rales, rhonchi, wheezes Additional comments: Normal WOB - Cardiovascular Cardiovascular exam: Present: RRR, +S1, +S2. Absent: diastolic murmur, gallop, rubs, systolic murmur Additional comments: 2+ pitting LLE edema, 1+ pitting RLE edema - GI/Abdominal GI/Abdominal exam: Present: normal bowel sounds, soft. Absent: distended, hepatomegaly, mass, splenomegaly, tenderness - Extremities Exam Additional comments: Significant erythema and moderate edema to entire LLE below knew, mild TTP, mild serosanguinous drainage, no pus, no skin tears - Neurological Exam Neurological exam: Present: alert, CN II-XII intact, oriented X3, no focal deficits, strengths equal and symetr throughout. Absent: motor sensory deficit , facial droop, speech deficit - Psychiatric Psychiatric exam: Present: normal affect, normal mood. Absent: agitated, anxious, depressed - Skin Skin exam: Present: dry, intact, warm. Absent: cyanosis, rash Internal Med - H&P Results - Labs CBC & Chem 7: 12/21/17 13:40 12/21/17 13:40 - VTE Contraindication No Overlap Therapy: Admin of oral Factor Xa Inhibitor - Assessment and plan (1) Cellulitis Current Visit: Yes Status: Acute Assessment and plan: Admit inpatient with telemetry. Continue IV vancomycin. Start tylenol and norco PRN for pain. Wound care consulted. PT/OT/SW consulted for possible discharge needs. Recheck labwork in AM. Qualifiers: Site of cellulitis: extremity Site of cellulitis of extremity: lower extremity Laterality: left Qualified Code(s): L03.116 - Cellulitis of left lower limb (2) Chronic CHF (congestive heart failure) Current Visit: Yes Status: Chronic Assessment and plan: Continue home medications. Will hydrate gently until tolerating good PO. Monitor for signs/symptoms of fluid overload. Qualifiers: Heart failure type: unspecified Qualified Code(s): I50.9 - Heart failure, unspecified (3) Atrial fibrillation Current Visit: Yes Status: Chronic Assessment and plan: Continue home medications. Qualifiers: Atrial fibrillation type: permanent Qualified Code(s): I48.2 - Chronic atrial fibrillation (4) DVT prophylaxis Current Visit: Yes Status: Acute Assessment and plan: Continue home xarelto. - Time Spent With Patient Total time spent is greater than 50% in coordination of care (as documented) at patient's floor/unit and/or counseling patient: less than 15 minutes
[2017-12-21] MEDS: *HR* HYDROcodone/Acet 5/325 mg TABLET PO PRN (20:24)
[2017-12-22] MEDS: Melatonin 3 MG TABLET PO SCH ×2 (01:33→22:48)
[2017-12-22 05:28] LABS: Basophils % 0.3 %; Eosinophils # 0.1 K/mcL (0.0-0.6); Eosinophils % 0.8 %; Hematocrit 53.7 % (37.5-50.1); Hemoglobin 16.7 g/dL (12.9-16.9); Immature Granulocytes % 0.4 % (0-4); Lymphocytes # 1.4 K/mcL (0.6-4.6); Lymphocytes % 15.6 %; Mean Corpuscular HGB Conc 31.1 g/dL (31.6-35.5); Mean Corpuscular Hemoglobin 26.7 pg (28.0-33.3); Mean Corpuscular Volume 85.8 fL (83.0-100.0); Mean Platelet Volume 10.7 fL (9.4-12.4); Monocytes # 0.8 K/mcL (0.0-1.3); Monocytes % 8.7 %; Neutrophils # 6.7 K/mcL (1.6-8.9); Platelet Count 202 K/mcL (140-400); Red Blood Count 6.26 M/mcL (4.19-5.50); Red Cell Distribution Width 14.4 % (11.5-14.5); Segmented Neutrophils % 74.2 %
[2017-12-22 05:53] LABS: BUN/Creatinine Ratio 18 (6-26); Blood Urea Nitrogen 15 mg/dL (8-23); Calcium 8.7 mg/dL (8.6-10.3); Carbon Dioxide 31 mEq/L (23-29); Chloride 102 mEq/L (98-107); Glucose 108 mg/dL (70-105); Magnesium 1.9 mg/dL (1.6-2.6); Osmolality,Calculated 287 (280-300); Potassium 3.9 mEq/L (3.5-5.1); Sodium 138 mEq/L (136-145); eGFR For African Americans > 60 (> 60); eGFR For Non-African Americans > 60 (> 60)
[2017-12-22] MEDS: *HR* HYDROcodone/Acet 5/325 mg TABLET PO PRN ×2 (09:23→16:00)
[2017-12-22] MEDS: Diltiazem CD (24hr) 120 MG CAPSULE PO SCH (09:23)
[2017-12-22] MEDS: Furosemide 40 MG TABLET PO SCH (09:23)
--- NOTE | 2017-12-22 11:13 | Internal Med Progress Note ---
Date of Encounter: 12/22/17 Time of Encounter: 11:15 - Assessment and plan (1) Cellulitis Current Visit: Yes Status: Acute Assessment and plan: Admit inpatient with telemetry. Continue IV vancomycin. added clindamycin to regimen. Start tylenol and norco PRN for pain. Wound care consulted. PT/OT/SW consulted for possible discharge needs. Recheck labwork in AM. Qualifiers: Site of cellulitis: extremity Site of cellulitis of extremity: lower extremity Laterality: left Qualified Code(s): L03.116 - Cellulitis of left lower limb (2) Chronic CHF (congestive heart failure) Current Visit: Yes Status: Chronic Assessment and plan: Pt has acute CHF with lower extremity edema and SOb. Will switch lasix to IV. Qualifiers: Heart failure type: unspecified Qualified Code(s): I50.9 - Heart failure, unspecified (3) Atrial fibrillation Current Visit: Yes Status: Chronic Assessment and plan: Continue home medications. Qualifiers: Atrial fibrillation type: permanent Qualified Code(s): I48.2 - Chronic atrial fibrillation (4) DVT prophylaxis Current Visit: Yes Status: Acute Assessment and plan: Continue home xarelto. - Time Spent With Patient Total time spent is greater than 50% in coordination of care (as documented) at patient's floor/unit and/or counseling patient: - Subjective Interval history: No acute events overnight - Constitutional Vitals: Temp Pulse Resp BP Pulse Ox 97.6 F 67 18 111/65 92 12/22/17 10:19 12/22/17 10:19 12/22/17 10:19 12/22/17 10:19 12/22/17 10:19 General appearance: Present: cooperative, A&O X 3, morbidly obese, pleasant, no acute distress, answers questions appropriately - Head Head exam: Present: atraumatic, normocephalic - Eye Eye exam: Present: PERRL, conjuntiva pink, sclera anicteric Pupils: Present: PERRL - Neck Neck exam general surgery: Present: supple, trachea midline. Absent: lymphadenopathy - Respiratory Respiratory exam: Present: CTAB. Absent: accessory muscle use, rales, rhonchi, wheezes - Cardiovascular Cardiovascular exam: Present: RRR, +S1, +S2. Absent: diastolic murmur, gallop, rubs, systolic murmur - GI/Abdominal GI/Abdominal exam: Present: normal bowel sounds, soft, no peritoneal signs. Absent: distended, tenderness - Extremities Exam Extremities exam: Present: warm, radial pulses palpable and symmetrical. Absent : calf tenderness, cyanotic, pedal edema - Neurological Exam Neurological exam: Present: CN II-XII intact, oriented X3, no focal deficits. Absent: pronater drift, facial droop, speech deficit - Skin Skin exam: Present: dry, intact Internal Medicine: Result - Labs CBC & Chem 7: 12/22/17 04:40 12/22/17 04:40 Labs: Short CBC 12/22/17 Range/Units 04:40 WBC 9.0 (4.3-11.1) K/mcL Hgb 16.7 (12.9-16.9) g/dL Hct 53.7 H (37.5-50.1) % Plt Count 202 (140-400) K/mcL Neutrophils # 6.7 (1.6-8.9) K/mcL BMP 12/22/17 04:40 Sodium 138 Potassium 3.9 Chloride 102 Carbon Dioxide 31 H BUN 15 Creatinine 0.82 Glucose 108 H Calcium 8.7 - VTE Contraindication No Overlap Therapy: Admin of oral Factor Xa Inhibitor Consult Discharge Plan - Plan Referrals: Lupe Kim MD [Primary Care Provider] - 12/30/17 1:45 pm
[2017-12-22] MEDS: Clindamycin 900 MG/50 ML 900 MG/50 ML IV.SOLN IVPB SCH ×3 (12:23→23:41)
[2017-12-22] MEDS: Furosemide 40 MG/4 ML VIAL IVP SCH (18:08)
[2017-12-22] MEDS: *HR* Rivaroxaban 10 MG TABLET PO SCH (18:09)
[2017-12-23 06:52] LABS: Basophils # 0.1 K/mcL (0.0-0.2); Basophils % 0.5 %; Eosinophils # 0.1 K/mcL (0.0-0.6); Eosinophils % 1.1 %; Hematocrit 53.1 % (37.5-50.1); Hemoglobin 16.8 g/dL (12.9-16.9); Immature Granulocytes % 0.5 % (0-4); Lymphocytes # 1.6 K/mcL (0.6-4.6); Lymphocytes % 16.6 %; Mean Corpuscular HGB Conc 31.6 g/dL (31.6-35.5); Mean Corpuscular Hemoglobin 26.9 pg (28.0-33.3); Mean Platelet Volume 10.3 fL (9.4-12.4); Monocytes # 0.9 K/mcL (0.0-1.3); Monocytes % 9.1 %; Neutrophils # 6.8 K/mcL (1.6-8.9); Platelet Count 205 K/mcL (140-400); Red Blood Count 6.25 M/mcL (4.19-5.50); Red Cell Distribution Width 14.4 % (11.5-14.5); Segmented Neutrophils % 72.2 %
[2017-12-23 07:14] LABS: BUN/Creatinine Ratio 21 (6-26); Blood Urea Nitrogen 16 mg/dL (8-23); Calcium 8.8 mg/dL (8.6-10.3); Carbon Dioxide 29 mEq/L (23-29); Chloride 102 mEq/L (98-107); Glucose 101 mg/dL (70-105); Osmolality,Calculated 289 (280-300); Potassium 3.5 mEq/L (3.5-5.1); Sodium 139 mEq/L (136-145); eGFR For African Americans > 60 (> 60); eGFR For Non-African Americans > 60 (> 60)
[2017-12-23] MEDS: Furosemide 40 MG/4 ML VIAL IVP SCH ×2 (09:19→17:29)
[2017-12-23] MEDS: Diltiazem CD (24hr) 120 MG CAPSULE PO SCH (09:19)
[2017-12-23] MEDS: Clindamycin 900 MG/50 ML 900 MG/50 ML IV.SOLN IVPB SCH (09:20)
--- NOTE | 2017-12-23 11:32 | Internal Med Progress Note ---
Date of Encounter: 12/23/17 Time of Encounter: 11:30 - Assessment and plan (1) Cellulitis Current Visit: Yes Status: Acute Assessment and plan: Admit inpatient with telemetry. Continue IV vancomycin. Switched clindamycin to runasyn to cover possible pasteurella. Start tylenol and norco PRN for pain. Wound care consulted. PT/OT/SW consulted for possible discharge needs. Qualifiers: Site of cellulitis: extremity Site of cellulitis of extremity: lower extremity Laterality: left Qualified Code(s): L03.116 - Cellulitis of left lower limb (2) Chronic CHF (congestive heart failure) Current Visit: Yes Status: Chronic Assessment and plan: Pt has acute CHF with lower extremity edema and SOb. Will switch lasix to IV. Qualifiers: Heart failure type: unspecified Qualified Code(s): I50.9 - Heart failure, unspecified (3) Atrial fibrillation Current Visit: Yes Status: Chronic Assessment and plan: Continue xarelto and sotalol. Qualifiers: Atrial fibrillation type: permanent Qualified Code(s): I48.2 - Chronic atrial fibrillation (4) DVT prophylaxis Current Visit: Yes Status: Acute Assessment and plan: Continue home xarelto. - Time Spent With Patient Total time spent is greater than 50% in coordination of care (as documented) at patient's floor/unit and/or counseling patient: - Subjective Interval history: No acute events overnight - Constitutional Vitals: Temp Pulse Resp BP Pulse Ox 97.6 F 70 16 105/66 91 12/23/17 10:16 12/23/17 10:16 12/23/17 10:16 12/23/17 10:16 12/23/17 10:16 General appearance: Present: cooperative, A&O X 3, morbidly obese, pleasant, no acute distress, answers questions appropriately - Head Head exam: Present: atraumatic, normocephalic - Eye Eye exam: Present: PERRL, conjuntiva pink, sclera anicteric Pupils: Present: PERRL - Neck Neck exam general surgery: Present: supple, trachea midline. Absent: lymphadenopathy - Respiratory Respiratory exam: Present: CTAB. Absent: accessory muscle use, rales, rhonchi, wheezes - Cardiovascular Cardiovascular exam: Present: RRR, +S1, +S2. Absent: diastolic murmur, gallop, rubs, systolic murmur - GI/Abdominal GI/Abdominal exam: Present: normal bowel sounds, soft, no peritoneal signs. Absent: distended, tenderness - Extremities Exam Extremities exam: Present: warm, radial pulses palpable and symmetrical. Absent : calf tenderness, cyanotic, pedal edema - Neurological Exam Neurological exam: Present: CN II-XII intact, oriented X3, no focal deficits. Absent: pronater drift, facial droop, speech deficit - Skin Skin exam: Present: dry, intact Internal Medicine: Result - Labs CBC & Chem 7: 12/23/17 06:31 12/23/17 06:31 Labs: Short CBC 12/23/17 Range/Units 06:31 WBC 9.4 (4.3-11.1) K/mcL Hgb 16.8 (12.9-16.9) g/dL Hct 53.1 H (37.5-50.1) % Plt Count 205 (140-400) K/mcL Neutrophils # 6.8 (1.6-8.9) K/mcL BMP 12/23/17 06:31 Sodium 139 Potassium 3.5 Chloride 102 Carbon Dioxide 29 BUN 16 Creatinine 0.76 Glucose 101 Calcium 8.8 - Impressions Impressions Chest X-Ray 12/22/17 11:30 IMPRESSION: 1. Findings suggest congestive heart failure. 2. Right upper lobe pulmonary nodule, although not significantly changed compared to May 2016. A chest CT is suggested for further evaluation. D/ / 12/22/2017 15:48:49 [facility] Canales [facility] Interpreting Provider: Fredrick Canales MD - VTE Contraindication No Overlap Therapy: Admin of oral Factor Xa Inhibitor Consult Discharge Plan - Plan Referrals: Lupe Kim MD [Primary Care Provider] - 12/30/17 1:45 pm
[2017-12-23] MEDS: Ampicillin/Sulbactam 1,500 MG in 0.9 % Sodium Chloride Mini Bag 100 ML IVPB SCH ×3 (12:40→23:17)
[2017-12-23] MEDS: *HR* HYDROcodone/Acet 5/325 mg TABLET PO PRN ×2 (14:49→21:49)
[2017-12-23] MEDS: *HR* Rivaroxaban 10 MG TABLET PO SCH (17:29)
[2017-12-23] MEDS: Melatonin 3 MG TABLET PO SCH (23:15)
[2017-12-24 01:27] LABS: Basophils # 0.1 K/mcL (0.0-0.2); Basophils % 0.6 %; Eosinophils # 0.1 K/mcL (0.0-0.6); Eosinophils % 1.4 %; Hemoglobin 16.3 g/dL (12.9-16.9); Immature Granulocytes % 0.4 % (0-4); Lymphocytes # 1.9 K/mcL (0.6-4.6); Lymphocytes % 17.8 %; Mean Corpuscular HGB Conc 30.8 g/dL (31.6-35.5); Mean Corpuscular Hemoglobin 26.2 pg (28.0-33.3); Mean Corpuscular Volume 85.3 fL (83.0-100.0); Monocytes % 9.5 %; Neutrophils # 7.3 K/mcL (1.6-8.9); Platelet Count 237 K/mcL (140-400); Red Blood Count 6.21 M/mcL (4.19-5.50); Red Cell Distribution Width 14.5 % (11.5-14.5); Segmented Neutrophils % 70.3 %
[2017-12-24 01:33] LABS: BUN/Creatinine Ratio 24 (6-26); Blood Urea Nitrogen 20 mg/dL (8-23); Calcium 8.7 mg/dL (8.6-10.3); Carbon Dioxide 33 mEq/L (23-29); Chloride 101 mEq/L (98-107); Glucose 112 mg/dL (70-105); Osmolality,Calculated 291 (280-300); Potassium 3.4 mEq/L (3.5-5.1); Sodium 139 mEq/L (136-145); eGFR For African Americans > 60 (> 60); eGFR For Non-African Americans > 60 (> 60)
[2017-12-24] MEDS: *HR* HYDROcodone/Acet 5/325 mg TABLET PO PRN ×2 (05:32→17:05)
[2017-12-24] MEDS: Ampicillin/Sulbactam 1,500 MG in 0.9 % Sodium Chloride Mini Bag 100 ML IVPB SCH ×4 (05:32→23:39)
[2017-12-24] MEDS: Diltiazem CD (24hr) 120 MG CAPSULE PO SCH (10:32)
[2017-12-24] MEDS: Furosemide 40 MG/4 ML VIAL IVP SCH ×2 (10:33→17:05)
--- NOTE | 2017-12-24 10:53 | Internal Med Progress Note ---
Date of Encounter: 12/24/17 Time of Encounter: 10:50 - Assessment and plan (1) Cellulitis Current Visit: Yes Status: Acute Assessment and plan: Severe cellulitis with weeping. Continue IV vancomycin. Switched clindamycin to unasyn to cover possible pasteurella. Start tylenol and norco PRN for pain. Wound care consulted. PT/OT/SW consulted for possible discharge needs. Qualifiers: Site of cellulitis: extremity Site of cellulitis of extremity: lower extremity Laterality: left Qualified Code(s): L03.116 - Cellulitis of left lower limb (2) Chronic CHF (congestive heart failure) Current Visit: Yes Status: Chronic Assessment and plan: Pt has acute CHF with lower extremity edema and SOb. Will switch lasix to IV.diuresing well Qualifiers: Heart failure type: unspecified Qualified Code(s): I50.9 - Heart failure, unspecified (3) Atrial fibrillation Current Visit: Yes Status: Chronic Assessment and plan: Continue xarelto and sotalol. Qualifiers: Atrial fibrillation type: permanent Qualified Code(s): I48.2 - Chronic atrial fibrillation (4) DVT prophylaxis Current Visit: Yes Status: Acute Assessment and plan: Continue home xarelto. - Time Spent With Patient Total time spent is greater than 50% in coordination of care (as documented) at patient's floor/unit and/or counseling patient: - Subjective Interval history: No acute events overnight - Constitutional Vitals: Temp Pulse Resp BP Pulse Ox 97.1 F L 67 18 122/79 96 12/24/17 10:06 12/24/17 10:06 12/24/17 10:06 12/24/17 10:06 12/24/17 10:06 General appearance: Present: cooperative, A&O X 3, morbidly obese, pleasant, no acute distress, answers questions appropriately - Head Head exam: Present: atraumatic, normocephalic - Eye Eye exam: Present: PERRL, conjuntiva pink, sclera anicteric Pupils: Present: PERRL - Neck Neck exam general surgery: Present: supple, trachea midline. Absent: lymphadenopathy - Respiratory Respiratory exam: Present: CTAB. Absent: accessory muscle use, rales, rhonchi, wheezes - Cardiovascular Cardiovascular exam: Present: RRR, +S1, +S2. Absent: diastolic murmur, gallop, rubs, systolic murmur - GI/Abdominal GI/Abdominal exam: Present: normal bowel sounds, soft, no peritoneal signs. Absent: distended, tenderness - Extremities Exam Extremities exam: Present: warm, radial pulses palpable and symmetrical. Absent : calf tenderness, cyanotic, pedal edema Additional comments: pitting edema in bilateral lower extremities, and redness - Neurological Exam Neurological exam: Present: CN II-XII intact, oriented X3, no focal deficits. Absent: pronater drift, facial droop, speech deficit - Skin Skin exam: Present: dry, intact Internal Medicine: Result - Labs CBC & Chem 7: 12/24/17 00:52 12/24/17 00:52 Labs: Short CBC 12/24/17 Range/Units 00:52 WBC 10.4 (4.3-11.1) K/mcL Hgb 16.3 (12.9-16.9) g/dL Hct 53.0 H (37.5-50.1) % Plt Count 237 (140-400) K/mcL Neutrophils # 7.3 (1.6-8.9) K/mcL BMP 12/24/17 00:52 Sodium 139 Potassium 3.4 L Chloride 101 Carbon Dioxide 33 H BUN 20 Creatinine 0.82 Glucose 112 H Calcium 8.7 - VTE Contraindication No Overlap Therapy: Admin of oral Factor Xa Inhibitor Consult Discharge Plan - Plan Referrals: Lupe Kim MD [Primary Care Provider] - 12/30/17 1:45 pm
[2017-12-24] MEDS: Potassium Chloride Elixir 20 MEQ/15 ML UDC PO SCH ×2 (12:22→20:55)
[2017-12-24] MEDS: *HR* Rivaroxaban 10 MG TABLET PO SCH (17:05)
[2017-12-24] MEDS: Melatonin 3 MG TABLET PO SCH (20:55)
[2017-12-25] MEDS: Ampicillin/Sulbactam 1,500 MG in 0.9 % Sodium Chloride Mini Bag 100 ML IVPB SCH ×2 (05:06→12:31)
[2017-12-25 05:56] LABS: Basophils # 0.1 K/mcL (0.0-0.2); Basophils % 0.7 %; Eosinophils # 0.1 K/mcL (0.0-0.6); Eosinophils % 1.3 %; Hematocrit 53.8 % (37.5-50.1); Hemoglobin 16.3 g/dL (12.9-16.9); Immature Granulocytes % 0.5 % (0-4); Lymphocytes # 1.9 K/mcL (0.6-4.6); Lymphocytes % 19.6 %; Mean Corpuscular HGB Conc 30.3 g/dL (31.6-35.5); Mean Corpuscular Volume 85.8 fL (83.0-100.0); Mean Platelet Volume 9.7 fL (9.4-12.4); Monocytes # 0.5 K/mcL (0.0-1.3); Monocytes % 5.6 %; Neutrophils # 6.9 K/mcL (1.6-8.9); Platelet Count 260 K/mcL (140-400); Red Blood Count 6.27 M/mcL (4.19-5.50); Red Cell Distribution Width 15.1 % (11.5-14.5); Segmented Neutrophils % 72.3 %
[2017-12-25 06:23] LABS: BUN/Creatinine Ratio 25 (6-26); Blood Urea Nitrogen 19 mg/dL (8-23); Calcium 8.9 mg/dL (8.6-10.3); Carbon Dioxide 29 mEq/L (23-29); Chloride 101 mEq/L (98-107); Glucose 111 mg/dL (70-105); Osmolality,Calculated 291 (280-300); Potassium 3.8 mEq/L (3.5-5.1); Sodium 139 mEq/L (136-145); eGFR For African Americans > 60 (> 60); eGFR For Non-African Americans > 60 (> 60)
[2017-12-25] MEDS: Furosemide 40 MG/4 ML VIAL IVP SCH (10:34)
[2017-12-25] MEDS: Potassium Chloride Elixir 20 MEQ/15 ML UDC PO SCH (10:34)
[2017-12-25] MEDS: Diltiazem CD (24hr) 120 MG CAPSULE PO SCH (10:35)
[2017-12-25 10:45] VITALS: BP 122/78
--- NOTE | 2017-12-25 12:45 | Discharge Summary ---
Orders not resulted at time of discharge: Pending orders 12/26/17 01:00 Vancomycin,Trough Timed 12/26/17 04:00 Basic Metabolic Panel AM 0400 CBC [Complete Blood Count] [HEME] AM 0400 12/27/17 04:00 Basic Metabolic Panel AM 0400 CBC [Complete Blood Count] [HEME] AM 0400 12/28/17 04:00 Basic Metabolic Panel AM 0400 CBC [Complete Blood Count] [HEME] AM 0400 Date of Encounter: 12/25/17 Time of Encounter: 12:40 - Discharge Diagnosis (1) Cellulitis Priority: Primary Status: Acute Assessment and Plan: 62 year old male who presented to ED today with worsening erythema and edema of LLE. He states that his dog scratched his leg 3 days ago. He took some old clindamycin that he had laying around at home with no improvement of symptoms. Erythema and edema continued to worsen, so he came to ED today. He was assessed with severe cellulitis with weeping and acute diastolic CHF exacerbation . He completed a 5 day course of vancomycin and unasyn with improvement as well as diuresing with iV lasix. he was discharged on a 5 day course of augmentin and his lasix was increased to BID on discharge. 35minutes was spent discharging this patient Qualifiers: Site of cellulitis: extremity Site of cellulitis of extremity: lower extremity Laterality: left Qualified Code(s): L03.116 - Cellulitis of left lower limb (2) Chronic CHF (congestive heart failure) Priority: Secondary Status: Chronic Qualifiers: Heart failure type: unspecified Qualified Code(s): I50.9 - Heart failure, unspecified (3) Atrial fibrillation Priority: Secondary Status: Chronic Qualifiers: Atrial fibrillation type: permanent Qualified Code(s): I48.2 - Chronic atrial fibrillation (4) DVT prophylaxis Priority: Secondary Status: Acute Hospital course: Mr. Arvizu is a 62 year old male - Time Spent with Patient Total time spent providing and/or coordinating discharge services: - Discharge Medications Prescriptions: Amoxicillin/Clavulanate [Augmentin] 875 mg PO BIDWM #10 tablet Furosemide [Lasix] 40 mg PO BID #60 tab Home Medications: Diltiazem HCl [Diltiazem 24Hr Cd] 120 mg PO DAILY 05/21/16 [History] Pravastatin Sodium [Pravachol] 40 mg PO HS 05/21/16 [History] Allopurinol [Zyloprim 100 MG] 100 mg PO DAILY 12/21/17 [History] Rivaroxaban [Xarelto] 20 mg PO DAILY 12/21/17 [History] Sotalol HCl [Betapace] 120 mg PO BID 12/21/17 [History] Amoxicillin/Clavulanate [Augmentin] 875 mg PO BIDWM #10 tablet 12/25/17 [Rx] Furosemide [Lasix] 40 mg PO BID #60 tab 12/25/17 [Rx] Allergies/Adverse Reactions: 3 Allergy/AdvReac Type Severity Reaction Status Date / Time No Known Allergies Allergy Verified 12/21/17 14:02 Date of admission: 12/21/17 15:55 Primary care physician: Lupe Kim Consults: 12/21/17 16:31 Consult for Pharmacy Education [CONS] Stat Reason for Consult: Vancomycin Dosing Call Completed: No 12/21/17 16:32 Consult to Wound Care [CONS] Routine Reason for Consult: LLE Wound. Please make wound care recommendations. Thanks. Call Completed: No 12/21/17 17:01 Consult to Physical Therapy [CONS] Routine Comment: Evaluate, develop and implement POC Reason for Consult: LLE Cellulitis. Please evaluate, treat, and make rehab recommendations. Thanks. Does patient have active BEDREST order?: No Is patient medically & hemodynamically stable?: Yes Patient assessed for mobility or mobilized this visit?: No Consult to Director Of Sustainability [CONS] Routine Reason for SW Consult: Discharge planning. 12/23/17 12:42 Consult to Nurse Navigator [CONS] Routine Comment: chf education - Constitutional Vitals: Temp Pulse Resp BP Pulse Ox 97.3 F L 70 18 122/78 97 12/25/17 10:39 12/25/17 10:39 12/25/17 10:39 12/25/17 10:39 12/25/17 10:39 General appearance: Present: cooperative, A&O X 3, morbidly obese, pleasant, no acute distress, answers questions appropriately - Patient Status Disposition: Home, Self-Care Condition: Good - Discharge Instructions Instructions: Cellulitis (DC) Follow Up With: Lupe Kim MD [Primary Care Provider] - 12/30/17 1:45 pm Forms: Work/School Release - VTE Contraindication No Overlap Therapy: Admin of oral Factor Xa Inhibitor
== END 2017-12-25 13:20 | disposition home or self-care (01) | DRG 602 ==
LOC: EMEROO 13:04 → 3ANU 15:55
PROVIDERS: ADMIT Family Medicine; ATTEND Family Medicine